=== PATIENT | male | born 1970 | race Caucasian/White ===

== ENCOUNTER 2020-09-13 13:21 | Outpatient (REF) | payer OTHER, SELFPAY ==
--- NOTE | 2020-09-13 14:20 | XR_ITS ---
EXAMINATION: KNEE X-RAY CLINICAL INFORMATION: Right knee pain COMPARISON: None TECHNIQUE: AP standing view of both knees and lateral and sunrise view of the right knee FINDINGS: Right knee: Bone alignment is normal. No fracture or dislocation is seen. There is mild arthritis at the medial femoral tibial and patellofemoral joints with joint space narrowing and osteophyte formation. There is a small joint effusion. AP standing view of the left knee is unremarkable. XR/XR knee standing BI IMPRESSION: Arthritis at the medial femoral tibial and patellofemoral joints.
--- NOTE | 2020-09-13 14:20 | XR_ITS ---
EXAMINATION: KNEE X-RAY CLINICAL INFORMATION: Right knee pain COMPARISON: None TECHNIQUE: AP standing view of both knees and lateral and sunrise view of the right knee FINDINGS: Right knee: Bone alignment is normal. No fracture or dislocation is seen. There is mild arthritis at the medial femoral tibial and patellofemoral joints with joint space narrowing and osteophyte formation. There is a small joint effusion. AP standing view of the left knee is unremarkable. XR/XR knee RT 2V IMPRESSION: Arthritis at the medial femoral tibial and patellofemoral joints.
== END 2020-09-13 13:22 | disposition home or self-care (01) ==
LOC: HO.HOSX 13:21
PROVIDERS: PCP Internal Medicine; Referring Provider Internal Medicine; Visit Provider Orthopaedic Surgery
DX: S83.271A Complex tear of lateral meniscus, current injury, right knee, initial encounter (principal); M25.562 Pain in left knee; M76.51 Patellar tendinitis, right knee; M22.2X1 Patellofemoral disorders, right knee; M17.11 Unilateral primary osteoarthritis, right knee
CPT/HCPCS: 73560; 73565

== ENCOUNTER 2022-09-03 08:00 | Outpatient (RCR) | payer OTHER, SELFPAY | END 2022-09-25 11:37 | disposition home or self-care (01) | LOC: HO.PT 08:00 | PROVIDERS: PCP Internal Medicine; Visit Provider Anesthesiology Pain Medicine | DX: R10.2 Pelvic and perineal pain (principal) | CPT/HCPCS: 97112; 97140; 97161 ==